=== PATIENT | male | born 1940 | race Caucasian/White ===

== ENCOUNTER 2018-01-02 20:56 | Emergency (ER) | payer MEDICARE, BC ==
[~2018-01-02] VITALS: Ht 177.8 cm; Wt 118.2 kg
[~2018-01-02 20:56] MED LIST: GLUCOPHAGE1000 MG PO; GLUCOTROL5 M2 PO; INDOMETHACIN50 M2 PO; LISINOPRIL-HYDR1 TA1 PO; LOPRESSOR 550 MG/TAB PO; ZOCOR 80MG80 MG PO
[2018-01-02 21:51] LABS: HEMATOCRIT 44.9 % (42.0-52.0); HEMOGLOBIN 14.8 g/dL (13.5-18.0); MEAN CELL VOLUME 87 fl (78-100); MEAN CORPUSCULAR HEMOGLOBIN 29 pg (27-31); MEAN CORPUSCULAR HGB CONC 33 g/dL (33-37); PLATELET COUNT 259 K/mm3 (130-400); RED BLOOD COUNT 5.15 M/mm3 (4.20-5.60); RED CELL DISTRIBUTION WIDTH 13.9 % (11.5-14.5); WHITE BLOOD COUNT 12.3 K/mm3 (4.8-10.8)
[2018-01-02 22:04] LABS: ALBUMIN 4.6 g/dL (3.5-5.0); BUN/CREATININE RATIO 16.8 (6.0-26.0); CALCIUM 9.6 mg/dL (8.4-10.2); POTASSIUM 4.5 mmol/L (3.6-5.0); TOTAL BILIRUBIN 0.8 mg/dL (0.2-1.3); TOTAL PROTEIN 8.4 g/dL (6.3-8.2)
[2018-01-02 22:05] LABS: PROTHROMBIN TIME 30.3 SECONDS (9.0-12.0)
[2018-01-02 22:09] LABS: LYMPHOCYTE 8 % (20-51); MONOCYTE 4 % (3-10); NEUTROPHILS 86 % (42-75)
[2018-01-02 23:28] LABS: URINE APPEARANCE CLEAR; URINE COLOR YELLOW; URINE PROTEIN(semi-quant) TRACE mg/dL (NEGATIVE)
[2018-01-02 23:29] LABS: URINE BILIRUBIN NEGATIVE (NEGATIVE); URINE BLOOD TRACE (NEGATIVE); URINE GLUCOSE NEGATIVE (NEGATIVE); URINE KETONE NEGATIVE (NEGATIVE); URINE LEUKOCYTE ESTERASE TRACE (NEGATIVE); URINE NITRATE NEGATIVE (NEGATIVE); URINE UROBILINOGEN NORMAL (NORMAL)
[2018-01-03 01:03] VITALS: BP 164/71
[2018-01-04] MEDS ORDERED: PRAVASTATIN SOD20 MG PO (20:01)
[2018-01-04] MEDS ORDERED: GLUCOPHAGE500 MG/TAB PO (20:01)
[2018-01-04] MEDS ORDERED: COUMADIN 4MG4 MG/TAB PO (20:02)
[2018-01-04] MEDS ORDERED: WARFARIN SODIUM3 MG PO (20:02)
[2018-01-04] MEDS ORDERED: ZESTRIL10 M1 PO (20:03)
[2018-01-04] MEDS ORDERED: TRESIBA FL100 UNIT/1 SQ (20:04)
[2018-01-04] MEDS ORDERED: FUROSEMIDE40 MG PO (20:04)
== END 2018-01-03 01:03 | disposition home or self-care (01) ==
LOC: ED 20:56
PROVIDERS: Nurse Practitioner Primary Care
DX: E86.0 Dehydration (principal); X30.XXXA Exposure to excessive natural heat, initial encounter; R10.817 Generalized abdominal tenderness; Z86.718 Personal history of other venous thrombosis and embolism; Z86.711 Personal history of pulmonary embolism; Z87.898 Personal history of other specified conditions; N28.9 Disorder of kidney and ureter, unspecified; I10 Essential (primary) hypertension; Z79.01 Long term (current) use of anticoagulants; Z79.899 Other long term (current) drug therapy
CPT/HCPCS: J2405; J3490; J7030

== ENCOUNTER 2018-01-04 19:46 | Emergency (ER) | payer MEDICARE, BC ==
[~2018-01-04] VITALS: Ht 177.8 cm; Wt 120.5 kg
[2018-01-04] MEDS ORDERED: GLUCOPHAGE500 MG/TAB PO (20:01)
[2018-01-04] MEDS ORDERED: PRAVASTATIN SOD20 MG PO (20:01)
[2018-01-04] MEDS ORDERED: COUMADIN 4MG4 MG/TAB PO (20:02)
[2018-01-04] MEDS ORDERED: WARFARIN SODIUM3 MG PO (20:02)
[2018-01-04] MEDS ORDERED: ZESTRIL10 M1 PO (20:03)
[2018-01-04] MEDS ORDERED: FUROSEMIDE40 MG PO (20:04)
[2018-01-04] MEDS ORDERED: TRESIBA FL100 UNIT/1 SQ (20:04)
[2018-01-04 20:50] LABS: EOS # 0.1 (0.04-0.40); EOS % 0.9 % (0.0-4.0); HEMOGLOBIN 16.2 g/dL (13.5-18.0); LYMPH# 1.9 (1.50-4.00); MEAN CELL VOLUME 88 fl (78-100); MEAN CORPUSCULAR HEMOGLOBIN 29 pg (27-31); MEAN CORPUSCULAR HGB CONC 33 g/dL (33-37); MEAN PLATELET VOLUME 9.1 fl (7.4-10.4); MONO # 0.8 (0.20-0.80); PLATELET COUNT 282 K/mm3 (130-400); WHITE BLOOD COUNT 12.7 K/mm3 (4.8-10.8)
[2018-01-04 20:51] LABS: NEU # 9.8 (1.40-6.50)
[2018-01-04 21:00] LABS: ALBUMIN 4.7 g/dL (3.5-5.0); BUN/CREATININE RATIO 18.6 (6.0-26.0); CALCIUM 9.9 mg/dL (8.4-10.2); POTASSIUM 4.4 mmol/L (3.6-5.0); TOTAL BILIRUBIN 0.8 mg/dL (0.2-1.3); TOTAL PROTEIN 8.8 g/dL (6.3-8.2)
[2018-01-04 21:10] LABS: PROTHROMBIN TIME 24.8 SECONDS (9.0-12.0)
[2018-01-04 21:13] LABS: PH-URINE 6.5 (5.0 - 8.0); URINE APPEARANCE CLEAR; URINE BILIRUBIN NEGATIVE (NEGATIVE); URINE BLOOD NEGATIVE (NEGATIVE); URINE COLOR YELLOW; URINE GLUCOSE NEGATIVE (NEGATIVE); URINE KETONE 1+ (NEGATIVE); URINE LEUKOCYTE ESTERASE 1+ (NEGATIVE); URINE NITRATE NEGATIVE (NEGATIVE); URINE PROTEIN(semi-quant) TRACE mg/dL (NEGATIVE); URINE UROBILINOGEN NORMAL (NORMAL)
[2018-01-05] MEDS ORDERED: ZOFRAN ODT4 MG PO (00:17)
[2018-01-05] MEDS ORDERED: PEPCID 20MG TAB20 MG PO (00:40)
[2018-01-05 00:45] VITALS: BP 166/76
== END 2018-01-05 00:45 | disposition home or self-care (01) ==
LOC: ED 19:46
PROVIDERS: Family Medicine
DX: K21.9 Gastro-esophageal reflux disease without esophagitis (principal); K59.00 Constipation, unspecified; E11.9 Type 2 diabetes mellitus without complications; Z79.4 Long term (current) use of insulin; Z79.01 Long term (current) use of anticoagulants; Z79.899 Other long term (current) drug therapy; Z86.711 Personal history of pulmonary embolism; Z86.718 Personal history of other venous thrombosis and embolism; N28.9 Disorder of kidney and ureter, unspecified
CPT/HCPCS: J3490; J7030